=== PATIENT | male | born 1970 | race Caucasian/White ===

== ENCOUNTER 2019-09-13 16:11 | Outpatient (CLI) | payer BC, SELFPAY ==
[2019-09-13 16:22] LABS: Basophils Percent Auto 0.3 % (0.2-1.2); Eosinophils Absolute Auto 0.1 K/mm3 (0-0.3); Eosinophils Percent Auto 1.8 % (0-4.4); Hematocrit 47.2 % (42.0-52.0); Hemoglobin 15.9 g/dL (14.0-18.0); Immature Granulocyte Absolute 0.03 K/mm3 (0.00-0.031); Immature Granulocyte Percent A 0.4 % (0-0.5); Lymphocytes Absolute Auto 2.02 K/mm3 (0.9-3.2); Lymphocytes Percent Auto 27.5 % (18.3-44.2); Mean Corpuscular HGB Conc 33.7 g/dl (32-36); Mean Corpuscular Hemoglobin 30.1 pg (26-34); Mean Corpuscular Volume 89.2 fl (80-100); Mean Platelet Volume 9.3 fl (7.4-10.4); Monocytes Absolute Auto 0.7 K/mm3 (0.1-0.6); Monocytes Percent Auto 9.3 % (2.6-8.5); Neutrophils Absolute Auto 4.5 K/mm3 (1.3-6.7); Neutrophils Percent Auto 60.7 % (45.5-73.1); Platelet Count Result 152 k/mm3 (150-375); Red Blood Count 5.29 M/mm3 (4.6-6.20); Red Cell Distribution Width 14.1 % (11.5-14.5); White Blood Count 7.3 K/mm3 (4.5-10.0)
[2019-09-13 16:53] LABS: Iron 112 ug/dL (49-181)
[2019-09-13 17:05] LABS: Percent Iron Saturation 37 % (20-50)
== END 2019-09-13 16:12 | disposition home or self-care (01) ==
LOC: ANHLAB 16:13
PROVIDERS: PCP Physician Assistant; Visit Provider Internal Medicine Hematology & Oncology
DX: E83.110 Hereditary hemochromatosis (principal)
CPT/HCPCS: 36415; 82728; 83540; 83550; 85025

== ENCOUNTER 2019-12-01 09:37 | Outpatient (CLI) | payer BC, SELFPAY ==
[2019-12-01 10:03] LABS: Basophils Percent Auto 0.2 % (0.2-1.2); Eosinophils Absolute Auto 0.2 K/mm3 (0-0.3); Eosinophils Percent Auto 1.9 % (0-4.4); Hematocrit 51.7 % (42.0-52.0); Hemoglobin 17.5 g/dL (14.0-18.0); Immature Granulocyte Absolute 0.05 K/mm3 (0.00-0.031); Immature Granulocyte Percent A 0.6 % (0-0.5); Lymphocytes Absolute Auto 2.05 K/mm3 (0.9-3.2); Lymphocytes Percent Auto 24.3 % (18.3-44.2); Mean Corpuscular HGB Conc 33.8 g/dl (32-36); Mean Corpuscular Hemoglobin 29.8 pg (26-34); Mean Corpuscular Volume 87.9 fl (80-100); Monocytes Absolute Auto 0.6 K/mm3 (0.1-0.6); Monocytes Percent Auto 7.3 % (2.6-8.5); Neutrophils Absolute Auto 5.5 K/mm3 (1.3-6.7); Neutrophils Percent Auto 65.7 % (45.5-73.1); Platelet Count Result 156 k/mm3 (150-375); Red Blood Count 5.88 M/mm3 (4.6-6.20); Red Cell Distribution Width 11.6 % (11.5-14.5); White Blood Count 8.4 K/mm3 (4.5-10.0)
[2019-12-01 11:27] LABS: Iron 130 ug/dL (49-181)
[2019-12-01 11:36] LABS: Percent Iron Saturation 41 % (20-50)
== END 2019-12-01 09:38 | disposition home or self-care (01) ==
LOC: ANHLAB 09:39
PROVIDERS: PCP Physician Assistant; Visit Provider Internal Medicine Hematology & Oncology
DX: E83.110 Hereditary hemochromatosis (principal)
CPT/HCPCS: 36415; 82728; 83540; 83550; 85025

== ENCOUNTER 2020-12-29 10:17 | Outpatient (CLI) | payer BC, SELFPAY ==
[2020-12-29 15:00] LABS: Alanine Aminotransferase 26 U/L (4-50); Albumin Level 4.6 g/dL (3.5-5.1); Alkaline Phosphatase 78 U/L (38-126); Anion Gap 11 mmol/L (8-16); Aspartate Amino Transferase 28 U/L (17-59); Bilirubin,Total 0.5 mg/dL (0.2-1.3); Blood Urea Nitrogen 19 mg/dL (9-20); Calcium 9.7 mg/dL (8.4-10.2); Carbon Dioxide 24 mmol/L (22-30); Chloride 106 mmol/L (98-107); Cholesterol 257 mg/dL (0-200); Estimated Glomerular Filt Rate > 60; Glucose 99 mg/dL (75-110); HDL Direct 57 mg/dL; Potassium 4.3 mmol/L (3.4-5.0); Sodium 141 mmol/L (137-145); Triglycerides 153 mg/dL (<150)
[2020-12-29 15:10] LABS: LDL Cholesterol Direct 134 mg/dL
[2020-12-29 15:13] LABS: Add Urine Microscopic? YES; Appearance Urine Clear (Clear); Bilirubin Urine Negative (Negative); Blood Urine Negative (Negative); Color Urine Yellow (Yellow); Glucose Urine UA Negative (Negative); Ketones Urine Negative (Negative); Leukocyte Esterase Ur Negative LEU/UL (NEGATIVE); Mucus Urine Rare /lpf; Nitrate Urine Negative (Negative); Protein Urine 1+ mg/dL (Negative); Specific Grav Ur 1.025 (1.001-1.035); Urobilinogen Urine Negative mg/dL (<2.0); WBC Urine 0-3 /hpf (0-3)
[2020-12-29 15:18] LABS: Free T4 Free Thyroxine 0.95 ng/mL (0.78-2.19)
[2020-12-29 15:31] LABS: Prostate Specific Antigen 1.1 ng/mL (< OR = 4.0)
[2020-12-29 15:33] LABS: Hemoglobin A1C 5.3 % (<5.7)
[2020-12-29 16:06] LABS: Folic Acid 6.3 ng/mL (2.76->20)
== END 2020-12-29 10:18 | disposition home or self-care (01) ==
LOC: ANHLAB 10:34
PROVIDERS: PCP Physician Assistant; Visit Provider Internal Medicine Hematology & Oncology
DX: E78.2 Mixed hyperlipidemia (principal); E03.9 Hypothyroidism, unspecified; Z79.899 Other long term (current) drug therapy; Z12.5 Encounter for screening for malignant neoplasm of prostate; Z13.1 Encounter for screening for diabetes mellitus
CPT/HCPCS: 36415; 80053; 80061; 81001; 82607; 82746; 83036; 84153; 84439; 84443

== ENCOUNTER → 2021-04-09 14:12 | Outpatient (CLI) | payer BC, SELFPAY ==
--- NOTE | ~2021-04-09 | MR_ITS ---
EXAMINATION: MR brain IAC wo/w con DATE: 04/09/2021 15:19 INDICATION: Dizziness and giddiness. TECHNIQUE: Magnetic resonance imaging (MRI) of the brain, brainstem, and internal auditory canals was performed without and with 20 mL MultiHance intravenous contrast. Sequences included sagittal and ax ial T1-weighted FSE, axial diffusion-weighted FS EPI, axial T2*-weighted GRE, axial T2-weighted FLAIR Propeller, axial T2-weighted Propeller, small xlzuo-oc-twkp coronal FIESTA, small wzyzv-yx-ykab garcia nal T1-weighted FSE, and small btpgy-nq-isvo axial T1-weighted SPGR. Postcontrast sequences included axial T1-weighted FSE, small mxrhd-ea-slne coronal T1-weighted FSE, and small crexv-vu-uksu axial T1- weighted SPGR. Apparent diffusion coefficient (ADC) maps were created. COMPARISON: Brain MRI 05/22/2012, head CT 05/21/2012 FINDINGS: There are scattered areas of nonspecific increased T2-weighted signal intensity in the cere bral white matter, which is within normal limits for the patient's age. There is no intracranial hemo rrhage, acute infarction, or abnormal intracranial mass lesion. The ventricles are normal in size. Th ere are mucous retention cysts in right maxillary sinus. The orbits are normal. The internal auditory canals and inner and middle ears are normal. The mastoid air cells are normal. IMPRESSION: 1. Normal aging brain. Reviewed, dictated and finalized at location A. IMPRESSION: 1. Normal aging brain.
[2021-04-09 14:39] LABS: Estimated Glomerular Filt Rate > 60
== END ==
PROVIDERS: PCP Physician Assistant; Visit Provider Physician Assistant
DX: R42 Dizziness and giddiness (principal)
CPT/HCPCS: 70553; A9577

== ENCOUNTER 2021-04-17 08:07 | Outpatient (CLI) | payer BC, SELFPAY ==
[2021-04-17 08:39] LABS: Basophils Percent Auto 0.3 % (0.2-1.2); Eosinophils Absolute Auto 0.1 K/mm3 (0-0.3); Eosinophils Percent Auto 2.1 % (0-4.4); Hematocrit 43.4 % (42.0-52.0); Hemoglobin 14.8 g/dL (14.0-18.0); Immature Granulocyte Absolute 0.02 K/mm3 (0.00-0.031); Immature Granulocyte Percent A 0.3 % (0-0.5); Lymphocytes Absolute Auto 1.92 K/mm3 (0.9-3.2); Lymphocytes Percent Auto 30.5 % (18.3-44.2); Mean Corpuscular HGB Conc 34.1 g/dl (32-36); Mean Corpuscular Hemoglobin 29.2 pg (26-34); Mean Corpuscular Volume 85.8 fl (80-100); Mean Platelet Volume 8.8 fl (7.4-10.4); Monocytes Absolute Auto 0.5 K/mm3 (0.1-0.6); Monocytes Percent Auto 8.3 % (2.6-8.5); Neutrophils Absolute Auto 3.7 K/mm3 (1.3-6.7); Neutrophils Percent Auto 58.5 % (45.5-73.1); Platelet Count Result 189 k/mm3 (150-375); Red Blood Count 5.06 M/mm3 (4.6-6.20); White Blood Count 6.3 K/mm3 (4.5-10.0)
[2021-04-17 09:58] LABS: Alanine Aminotransferase 42 U/L (4-50); Albumin Level 4.6 g/dL (3.5-5.1); Alkaline Phosphatase 93 U/L (38-126); Anion Gap 9 mmol/L (8-16); Aspartate Amino Transferase 34 U/L (17-59); Bilirubin,Total 0.5 mg/dL (0.2-1.3); Blood Urea Nitrogen 20 mg/dL (9-20); Calcium 9.5 mg/dL (8.4-10.2); Carbon Dioxide 24 mmol/L (22-30); Chloride 106 mmol/L (98-107); Estimated Glomerular Filt Rate > 60; Glucose 121 mg/dL (65-110); Potassium 4.4 mmol/L (3.4-5.0); Sodium 139 mmol/L (137-145)
[2021-04-17 11:05] LABS: Folic Acid 11.1 ng/mL (2.76->20); Iron 116 ug/dL (49-181)
[2021-04-17 11:17] LABS: Percent Iron Saturation 40 % (20-50)
[2021-04-17 11:23] LABS: Free T4 Free Thyroxine 1.04 ng/mL (0.78-2.19)
[2021-04-20 10:21] LABS: Sex Hormone Binding Globulin 16 nmol/L (10-50); Thyroid Peroxidase Antibodies 2 IU/mL (<9)
[2021-04-21 07:47] LABS: FSH 3.6 mIU/mL (1.6-8.0); LH 2.2 mIU/mL (1.5-9.3); Prolactin 2.8 ng/mL (***)
[2021-04-22 13:16] LABS: Testosterone Free 44.3 pg/mL (35.0-155.0); Testosterone Total 211 ng/dL (250-1100)
== END 2021-04-17 08:08 | disposition home or self-care (01) ==
LOC: ANHLAB 08:10
PROVIDERS: PCP Physician Assistant; Visit Provider Internal Medicine Endocrinology, Diabetes & Metabolism
DX: R79.89 Other specified abnormal findings of blood chemistry (principal); R53.83 Other fatigue
CPT/HCPCS: 36415; 80053; 82607; 82728; 82746; 83001; 83002; 83540; 83550; 84146; 84270; 84402; 84403; 84439; 84443; 85025; 86376

== ENCOUNTER 2021-07-10 08:20 | Outpatient (CLI) | payer BC, SELFPAY ==
[2021-07-10 08:50] LABS: Basophils Percent Auto 0.5 % (0.2-1.2); Eosinophils Absolute Auto 0.2 K/mm3 (0-0.3); Eosinophils Percent Auto 2.7 % (0-4.4); Hemoglobin 15.7 g/dL (14.0-18.0); Immature Granulocyte Absolute 0.04 K/mm3 (0.00-0.031); Immature Granulocyte Percent A 0.6 % (0-0.5); Lymphocytes Absolute Auto 2.14 K/mm3 (0.9-3.2); Lymphocytes Percent Auto 32.6 % (18.3-44.2); Mean Corpuscular HGB Conc 33.4 g/dl (32-36); Mean Corpuscular Hemoglobin 29.6 pg (26-34); Mean Corpuscular Volume 88.5 fl (80-100); Mean Platelet Volume 8.9 fl (7.4-10.4); Monocytes Absolute Auto 0.5 K/mm3 (0.1-0.6); Monocytes Percent Auto 7.2 % (2.6-8.5); Neutrophils Absolute Auto 3.7 K/mm3 (1.3-6.7); Neutrophils Percent Auto 56.4 % (45.5-73.1); Platelet Count Result 192 k/mm3 (150-375); Red Blood Count 5.31 M/mm3 (4.6-6.20); Red Cell Distribution Width 11.6 % (11.5-14.5); White Blood Count 6.6 K/mm3 (4.5-10.0)
[2021-07-10 11:08] LABS: Alanine Aminotransferase 34 U/L (4-50); Albumin Level 4.3 g/dL (3.5-5.1); Alkaline Phosphatase 82 U/L (38-126); Anion Gap 8 mmol/L (8-16); Aspartate Amino Transferase 30 U/L (17-59); Bilirubin,Total 0.5 mg/dL (0.2-1.3); Blood Urea Nitrogen 18 mg/dL (9-20); Calcium 9.3 mg/dL (8.4-10.2); Carbon Dioxide 24 mmol/L (22-30); Chloride 102 mmol/L (98-107); Estimated Glomerular Filt Rate > 60; Glucose 152 mg/dL (65-110); Potassium 4.2 mmol/L (3.4-5.0); Sodium 134 mmol/L (137-145); Uric Acid 4.7 mg/dL (3.5-8.5)
[2021-07-10 11:24] LABS: Free T4 Free Thyroxine 0.97 ng/mL (0.78-2.19)
[2021-07-10 11:31] LABS: Hemoglobin A1C 5.6 % (<5.7)
[2021-07-13 05:14] LABS: Insulin Level Total 56.9 uIU/mL (<=19.6)
[2021-07-16 12:55] LABS: Testosterone Total 182 ng/dL (250-1100)
== END 2021-07-10 08:21 | disposition home or self-care (01) ==
LOC: ANHLAB 08:22
PROVIDERS: Internal Medicine Endocrinology, Diabetes & Metabolism; PCP Physician Assistant; Visit Provider Internal Medicine Hematology & Oncology
DX: R73.01 Impaired fasting glucose (principal); E29.1 Testicular hypofunction
CPT/HCPCS: 36415; 80053; 83036; 83525; 84402; 84403; 84439; 84443; 84550; 85025

== ENCOUNTER 2021-12-12 08:48 | Outpatient (CLI) | payer BC, SELFPAY ==
[2021-12-12 09:21] LABS: Basophils Percent Auto 0.3 % (0.2-1.2); Eosinophils Absolute Auto 0.1 K/mm3 (0-0.3); Eosinophils Percent Auto 2.1 % (0-4.4); Hematocrit 51.3 % (42.0-52.0); Hemoglobin 17.3 g/dL (14.0-18.0); Immature Granulocyte Absolute 0.02 K/mm3 (0.00-0.031); Immature Granulocyte Percent A 0.3 % (0-0.5); Lymphocytes Absolute Auto 2.13 K/mm3 (0.9-3.2); Lymphocytes Percent Auto 34.2 % (18.3-44.2); Mean Corpuscular HGB Conc 33.7 g/dl (32-36); Mean Corpuscular Hemoglobin 28.9 pg (26-34); Mean Corpuscular Volume 85.8 fl (80-100); Monocytes Absolute Auto 0.6 K/mm3 (0.1-0.6); Monocytes Percent Auto 8.8 % (2.6-8.5); Neutrophils Absolute Auto 3.4 K/mm3 (1.3-6.7); Neutrophils Percent Auto 54.3 % (45.5-73.1); Platelet Count Result 183 k/mm3 (150-375); Red Blood Count 5.98 M/mm3 (4.6-6.20); Red Cell Distribution Width 11.8 % (11.5-14.5); White Blood Count 6.2 K/mm3 (4.5-10.0)
[2021-12-12 10:01] LABS: Alanine Aminotransferase 26 U/L (6-50); Albumin Level 4.6 g/dL (3.5-5.1); Alkaline Phosphatase 78 U/L (38-126); Anion Gap 7 mmol/L (8-16); Aspartate Amino Transferase 51 U/L (17-59); Bilirubin,Total 0.6 mg/dL (0.2-1.3); Blood Urea Nitrogen 17 mg/dL (9-20); Calcium 8.9 mg/dL (8.4-10.2); Carbon Dioxide 26 mmol/L (22-30); Chloride 102 mmol/L (98-107); Estimated Glomerular Filt Rate > 60; Glucose 111 mg/dL (65-110); Potassium 4.3 mmol/L (3.4-5.0); Sodium 135 mmol/L (137-145)
[2021-12-12 10:02] LABS: Cholesterol 191 mg/dL (0-200); HDL Direct 35 mg/dL; Triglycerides 184 mg/dL (<150)
[2021-12-12 10:12] LABS: LDL Cholesterol Direct 97 mg/dL
[2021-12-12 10:28] LABS: Iron 146 ug/dL (49-181)
[2021-12-12 10:38] LABS: Percent Iron Saturation 42 % (20-50)
[2021-12-12 11:07] LABS: Folic Acid 11.4 ng/mL (2.76->20)
== END 2021-12-12 08:49 | disposition home or self-care (01) ==
LOC: ANHLAB 08:50
PROVIDERS: PCP Physician Assistant; Visit Provider Internal Medicine Hematology & Oncology
DX: E78.2 Mixed hyperlipidemia (principal); Z79.899 Other long term (current) drug therapy
CPT/HCPCS: 36415; 80053; 80061; 82607; 82728; 82746; 83540; 83550; 85025

== ENCOUNTER 2022-03-05 08:09 | Outpatient (CLI) | payer BC, SELFPAY ==
[2022-03-05 08:43] LABS: Basophils Percent Auto 0.2 % (0.2-1.2); Eosinophils Absolute Auto 0.1 K/mm3 (0-0.3); Eosinophils Percent Auto 1.5 % (0-4.4); Hematocrit 43.9 % (42.0-52.0); Hemoglobin 14.4 g/dL (14.0-18.0); Immature Granulocyte Absolute 0.04 K/mm3 (0.00-0.031); Immature Granulocyte Percent A 0.5 % (0-0.5); Lymphocytes Absolute Auto 3.23 K/mm3 (0.9-3.2); Lymphocytes Percent Auto 37.1 % (18.3-44.2); Mean Corpuscular HGB Conc 32.8 g/dl (32-36); Mean Corpuscular Hemoglobin 28.7 pg (26-34); Mean Corpuscular Volume 87.5 fl (80-100); Mean Platelet Volume 9.2 fl (7.4-10.4); Monocytes Absolute Auto 0.6 K/mm3 (0.1-0.6); Monocytes Percent Auto 6.7 % (2.6-8.5); Neutrophils Absolute Auto 4.7 K/mm3 (1.3-6.7); Platelet Count Result 155 k/mm3 (150-375); Red Blood Count 5.02 M/mm3 (4.6-6.20); Red Cell Distribution Width 12.3 % (11.5-14.5); White Blood Count 8.7 K/mm3 (4.5-10.0)
[2022-03-05 11:33] LABS: Cholesterol 160 mg/dL (0-200); HDL Direct 51 mg/dL; Triglycerides 152 mg/dL (<150)
[2022-03-05 11:37] LABS: Hemoglobin A1C 6.1 % (<5.7)
[2022-03-05 11:41] LABS: Alanine Aminotransferase 27 U/L (6-50); Albumin Level 4.2 g/dL (3.5-5.1); Alkaline Phosphatase 78 U/L (38-126); Anion Gap 9 mmol/L (8-16); Aspartate Amino Transferase 21 U/L (17-59); Blood Urea Nitrogen 20 mg/dL (9-20); Calcium 9.2 mg/dL (8.4-10.2); Carbon Dioxide 26 mmol/L (22-30); Chloride 102 mmol/L (98-107); Estimated Glomerular Filt Rate > 60; Glucose 106 mg/dL (65-110); Potassium 3.7 mmol/L (3.4-5.0); Sodium 137 mmol/L (137-145)
[2022-03-05 11:43] LABS: LDL Cholesterol Direct 71 mg/dL
[2022-03-05 11:44] LABS: Free T4 Free Thyroxine 1.13 ng/mL (0.78-2.19)
[2022-03-05 11:59] LABS: Prostate Specific Antigen 1.2 ng/mL (< OR = 4.0)
[2022-03-05 12:34] LABS: Folic Acid 7.4 ng/mL (2.76->20)
[2022-03-08 13:28] LABS: Insulin Level Total 5.9 uIU/mL (<=19.6)
[2022-03-11 16:16] LABS: Testosterone Free 40.8 pg/mL (35.0-155.0); Testosterone Total 204 ng/dL (250-1100)
== END 2022-03-05 08:10 | disposition home or self-care (01) ==
LOC: ANHLAB 08:10
PROVIDERS: PCP Physician Assistant; Visit Provider Internal Medicine Endocrinology, Diabetes & Metabolism
DX: R73.01 Impaired fasting glucose (principal); E29.1 Testicular hypofunction; E03.9 Hypothyroidism, unspecified; E78.2 Mixed hyperlipidemia; Z79.899 Other long term (current) drug therapy; Z12.5 Encounter for screening for malignant neoplasm of prostate
CPT/HCPCS: 36415; 80053; 80061; 82607; 82746; 83036; 83525; 84153; 84402; 84403; 84439; 84443; 85025; G0103

== ENCOUNTER 2022-08-16 12:30 | Emergency (ER) | payer BC, SELFPAY ==
--- NOTE | ~2022-08-16 | CT_ITS ---
EXAMINATION: CT abdomen pelvis wo con DATE: 08/16/2022 13:53 INDICATION: Flank pain. Hematuria. TECHNIQUE: Computed tomography (CT) of the abdomen and pelvis was performed without intravenous contr ast. Automated exposure control and iterative reconstruction technique were employed. The dose-length product was 1524.16 mGy-cm. COMPARISON: None. FINDINGS: The visualized portions of the lung bases demonstrate mild atelectasis. No pleural effusion . The heart size is normal. No pericardial effusion. The liver, gallbladder, spleen, pancreas, adrena l glands, and right kidney are normal. There is a 9.4 cm mass in left kidney measuring soft tissue at tenuation. There is mild left hydronephrosis. There is hyperdense material in left renal pelvis and p roximal left ureter, likely hematoma. There is no urolithiasis. The prostate is mildly enlarged. Ther e are no dilated loops of bowel. The appendix is normal. There are no pathologically enlarged lymph n odes. There is a left inguinal hernia containing fat. There is no free intraperitoneal fluid. There i s mild thoracolumbar spondylosis. IMPRESSION: 1. 9.4 cm mass in left kidney, likely renal cell carcinoma. Abdomen CT with contrast is recommended. 2. Hematoma in proximal left ureter with mild left hydronephrosis. Reviewed, dictated and finalized at location A. IO OPERATIONS ENGINEER IN CHARGE IMPRESSION: 1. 9.4 cm mass in left kidney, likely renal cell carcinoma. Abdomen CT with con trast is recommended. 2. Hematoma in proximal left ureter with mild left hydronephrosis.
--- NOTE | ~2022-08-16 | CT_ITS ---
EXAMINATION: CT abdomen pelvis w con DATE: 08/16/2022 14:30 INDICATION: Left flank pain. Hematuria. TECHNIQUE: Computed tomography (CT) of the abdomen and pelvis was performed with 100 mL Omnipaque 350 intravenous contrast. Automated exposure control and iterative reconstruction technique were employe d. The dose-length product was 1637.82 mGy-cm. COMPARISON: Noncontrast CT abdomen and pelvis 08/16/2022 FINDINGS: The visualized portions of the lung bases demonstrate mild atelectasis. No pleural effusion . The heart size is normal. No pericardial effusion. The liver, gallbladder, spleen, pancreas, adrena l glands, and right kidney are normal. There is a 9.8 x 6.9 cm enhancing mass in left kidney. No aminata l vein involvement. There is mild left hydronephrosis. There is hematoma in proximal left ureter. The prostate is mildly enlarged. There is a left inguinal hernia containing fat. There are no dilated lo ops of bowel. The appendix is normal. There are no pathologically enlarged lymph nodes. There is no f ree intraperitoneal fluid. There is mild thoracolumbar spondylosis. IMPRESSION: 1. 9.8 cm enhancing mass in left kidney, consistent with renal cell carcinoma. 2. Hematoma in proximal left ureter with mild left hydronephrosis. Reviewed, dictated and finalized at location A. RAM CLERK
[2022-08-16 12:48] VITALS: BP 171/91; PULSE 75; RESP 16; TEMP 36.4; O2SAT 99
[2022-08-16 13:00] LABS: Basophils Percent Auto 0.3 % (0.2-1.2); Eosinophils Absolute Auto 0.1 K/mm3 (0-0.3); Eosinophils Percent Auto 1.4 % (0-4.4); Hematocrit 45.9 % (42.0-52.0); Hemoglobin 15.5 g/dL (14.0-18.0); Immature Granulocyte Absolute 0.02 K/mm3 (0.00-0.031); Immature Granulocyte Percent A 0.3 % (0-0.5); Lymphocytes Absolute Auto 2.21 K/mm3 (0.9-3.2); Lymphocytes Percent Auto 28.1 % (18.3-44.2); Mean Corpuscular HGB Conc 33.8 g/dl (32-36); Mean Corpuscular Hemoglobin 28.9 pg (26-34); Mean Corpuscular Volume 85.6 fl (80-100); Mean Platelet Volume 9.2 fl (7.4-10.4); Monocytes Absolute Auto 0.6 K/mm3 (0.1-0.6); Monocytes Percent Auto 7.6 % (2.6-8.5); Neutrophils Absolute Auto 4.9 K/mm3 (1.3-6.7); Neutrophils Percent Auto 62.3 % (45.5-73.1); Platelet Count Result 180 k/mm3 (150-375); Red Blood Count 5.36 M/mm3 (4.6-6.20); Red Cell Distribution Width 12.8 % (11.5-14.5); White Blood Count 7.9 K/mm3 (4.5-10.0)
[2022-08-16 13:11] LABS: Appearance Urine Cloudy (Clear); Bilirubin Urine 1+ (Negative); Blood Urine 3+ (Negative); Color Urine Amber (Yellow); Glucose Urine UA Negative (Negative); Ketones Urine Negative (Negative); Leukocyte Esterase Ur Negative LEU/UL (Negative); Nitrate Urine Negative (Negative); Protein Urine 3+ mg/dL (Negative); Specific Grav Ur 1.025 (1.001-1.035); Urobilinogen Urine 0.2 mg/dL (<2.0)
[2022-08-16 13:15] LABS: Bacteria Urine Trace /hpf; RBC Urine >75 /hpf (0-2); WBC Urine 31-50 /hpf
[2022-08-16 13:16] LABS: Alanine Aminotransferase 26 U/L (6-50); Albumin Level 4.5 g/dL (3.5-5.1); Alkaline Phosphatase 69 U/L (38-126); Anion Gap 7 mmol/L (8-16); Aspartate Amino Transferase 33 U/L (17-59); Bilirubin,Total 0.8 mg/dL (0.2-1.3); Blood Urea Nitrogen 18 mg/dL (9-20); Calcium 8.8 mg/dL (8.4-10.2); Carbon Dioxide 22 mmol/L (22-30); Chloride 103 mmol/L (98-107); Estimated CRCL calculation 104 ml/min; Estimated Glomerular Filt Rate > 60; Glucose 117 mg/dL (65-110); Potassium 4.3 mmol/L (3.4-5.0); Sodium 132 mmol/L (137-145)
[2022-08-16 13:16] LABS: Add Urine Microscopic? YES
[2022-08-16] MEDS: SODIUM CHLORIDE 0.9% IV 1,000 ML 999 ML IV CONT (13:57)
[2022-08-16] MEDS: ONDANSETRON INJ 4 MG/2 ML VIAL IV PUSH (13:57)
[2022-08-16] MEDS: HYDROmorphone HCL INJ (*CRX) 1 MG/ML SYR IV PUSH ×2 (13:57→14:42)
--- NOTE | 2022-08-16 13:57 | ED.GENADULT ---
HPI - General Adult General Chief complaint: Urogenital-Male Stated complaint: hematura Time Seen by Provider: 08/16/22 12:58 History of Present Illness HPI narrative: 52-year-old male presented to the emergency department for evaluation of left flank pain. Patient has no prior history of kidney stones but states approximately 30 minutes prior to arrival he had onset of left-sided flank pain. Patient reports he was just driving his car when symptoms started. Patient reports the pain radiates around from his left flank to his left lower abdomen into his testicle. Patient denies any falls or injuries. Patient reports that he had been having some radiation of the pain to his left testicle over the last few days. Related Data Home Medications Medication Instructions Recorded Confirmed atorvastatin 40 mg tablet 40 mg PO DAILY 12/10/19 06/03/22 levothyroxine 75 mcg capsule 75 mcg PO DAILY 05/01/20 06/03/22 Allergies Allergy/AdvReac Type Severity Reaction Status Date / Time Penicillins Allergy Unknown RASH Verified 06/03/22 14:58 Review of Systems Review of Systems: CONSTITUTIONAL: Denies fever, chills, or sweats. EYES: Denies visual changes, redness, or discharge. ENT: Denies rhinorrhea, congestion, sore throat, or otalgia. CARDIOVASCULAR: Denies chest pain, palpitations, or edema. RESPIRATORY: Denies cough or dyspnea. GASTROINTESTINAL: See HPI GENITOURINARY: Denies dysuria or hematuria. SKIN: Denies rash or itching. MUSCULOSKELETAL: Denies back pain, joint pain, or myalgia. NEUROLOGIC: Denies headache, numbness, or weakness. Exam Narrative: APPEARANCE: Well appearing, no pain, no distress, well-nourished. HEAD: normocephalic, atraumatic. EYES: PERRLA/EOMI, conjunctivae clear. NOSE: Normal no drainage NECK: Supple. No adenopathy, no masses. RESPIRATORY: Airway patent, respirations nonlabored. Clear to auscultation bilaterally, no rales, rhonchi, wheezing. CARDIOVASCULAR: Regular rate and rhythm without murmurs rubs or gallops. ABDOMINAL: Left flank, left upper quadrant tenderness to palpation. MUSCULOSKELETAL: Moves all extremities. Strength/ROM intact, No edema, No calf tenderness. NEURO: Alert. Cranial nerves II through XII intact. Grossly intact SKIN: Warm, dry. Normal Color Course Course Emergency Course: Patient is afebrile with no leukocytosis. Patient's creatinine is 1.1 which is similar to his baseline. Patient's UA did show hematuria. Initially a CT scan without contrast was ordered to evaluate for ureteral calculi. CT abdomen pelvis without contrast was concerned for renal cell carcinoma and CT abdomen pelvis with contrast was recommended. CT with contrast did confirm concern for renal cell carcinoma. Patient did require a second dose of IV pain meds. Patient was initially concerned about discharge to home with his level of pain. Patient was able to ambulate to the bathroom and did urinate with no worsening of his pain. Patient states that his hematuria has resolved. Case was discussed with urology and they are coming to evaluate the patient. Patient did feel improved with treatment of IV fluids and IV pain medication. Patient was evaluated by urology and patient was comfortable with the plan for discharge home. Patient will be provided medications for pain control and for nausea control. Patient will have outpatient follow-up with [facility]. Vital Signs Vital signs: Vital Signs Temperature 97.6 F 08/16/22 12:48 Pulse Rate 75 08/16/22 12:48 Respiratory Rate 16 08/16/22 12:48 Blood Pressure 171/91 H 08/16/22 12:48 Pulse Oximetry 99 08/16/22 12:48 Temperature 97.6 F 08/16/22 12:48 Pulse Rate 93 08/16/22 15:00 Respiratory Rate 17 08/16/22 15:00 Blood Pressure 191/103 H 08/16/22 15:00 Pulse Oximetry 95 08/16/22 15:00 Medical Decision Making Vital Signs Vital Signs: Vital Signs Temperature 97.6 F 08/16/22 12:48 Pulse Rate 75 08/16/22 12:48 Respiratory
--- NOTE | 2022-08-16 14:38 | PC.NURSE ---
vrbo per erp dr benito guanaudid 1mg x 1 dose.
[2022-08-16 15:00] VITALS: BP 191/103; PULSE 93; RESP 17; O2SAT 95
--- NOTE | 2022-08-16 15:20 | PC.NURSE ---
pt ambulatory to bathroom without difficulty
--- NOTE | 2022-08-16 15:29 | PC.NURSE ---
dr voss to see pt in ed.
--- NOTE | 2022-08-16 16:05 | WPDURCON ---
Assessment and Plan Assessment and plan (1) Renal cell carcinoma of left kidney: Code(s): C64.2 - Malignant neoplasm of left kidney, except renal pelvis Status: Acute Assessment and Plan: I had a long talk with the patient and his , explaining that the findings on CT scan are almost certainly indicative of a left renal cell carcinoma. We had a long talk about the anticipated surgical intervention which, given the size and position of this lesion, will likely require laparoscopic nephrectomy. The pain the patient is experiencing is likely a result of a clot in his left collecting system/ ureter. Ureteral obstruction from blood clots is usually minimal and short lived. I am comfortable with pain management as an outpatient. I have my office working on setting up consultation with one of our oncologic urologist to further discuss surgical intervention. My office will contact patient early next week (likely on Friday ) with a follow-up appointment. Urology Consult Note HPI Date Seen: 08/16/22 Primary Care Provider: Rohini Talamantes, PA-C Consult Narrative Narrative: Pleasant 52-year-old male, without prior significant urological or medical history, presents to the ER with hematuria and left flank pain. CT imaging of the abdomen and pelvis with without contrast shows a 10 cm midpole, intrinsic enhancing left renal mass consistent with renal cell carcinoma. There was no evidence of retroperitoneal adenopathy. The radiologist does not report thrombus in the left renal vein but it looks a little full by my review. The patient denies constitutional symptoms, specifically denying fevers/chills, night sweats, unexplained weight loss etc. there does appear to be some clot in his collecting system and proximal left ureter Review of Systems Cardiovascular: Cardiovascular: Denies chest pain, Denies lightheadedness, Denies palpitations and Denies dyspnea Respiratory: Respiratory: Denies dyspnea Gastrointestinal: Gastrointestinal: Denies diarrhea, Denies nausea and Denies vomiting Genitourinary: Genitourinary: Reports hematuria, Denies dysuria and Reports flank pain Endocrine: Endocrine: Denies palpitations Meds Home Medications and Allergies Home Medications Medication Instructions Recorded Confirmed Type atorvastatin 40 mg tablet 40 mg PO DAILY 12/10/19 06/03/22 History levothyroxine 75 mcg capsule 75 mcg PO DAILY 05/01/20 06/03/22 History hydrocodone 5 mg-acetaminophen 325 1 tablet PO Q8H PRN pain #20 tabs 08/16/22 Rx mg tablet ondansetron 4 mg disintegrating 4 mg PO Q6H PRN nausea and 08/16/22 Rx tablet vomiting #20 tabs Allergies Allergy/AdvReac Type Severity Reaction Status Date / Time Penicillins Allergy Unknown RASH Verified 06/03/22 14:58 Vital Signs Vital Signs - 24 hr 08/16/22 12:48 08/16/22 15:00 Temperature 97.6 F Pulse Rate 75 93 Respiratory Rate 16 17 Blood Pressure 171/91 H 191/103 H Pulse Oximetry 99 95 Exam Const: General: no acute distress Resp: Effort & Inspection: normal respiratory effort GI: Inspection: non-distended GI Palp: No abdominal tenderness and No Guarding due to palpation present (GI) Auscultation: normal bowel sounds Results Labs 08/16/22 12:53 08/16/22 12:53 Labs: Short CBC 08/16/22 Range/Units 12:53 WBC 7.9 (4.5-10.0) K/mm3 Hgb 15.5 (14.0-18.0) g/dL Hct 45.9 (42.0-52.0) % Plt Count 180 (150-375) k/mm3 BMP 08/16/22 12:53 Sodium 132 L Potassium 4.3 Chloride 103 Carbon Dioxide 22 BUN 18 Creatinine 1.10 Glucose 117 H Calcium 8.8 Liver Function 08/16/22 Range/Units 12:53 Total Bilirubin 0.8 (0.2-1.3) mg/dL AST 33 (17-59) U/L ALT 26 (6-50) U/L Alkaline Phosphatase 69 (38-126) U/L Albumin 4.5 (3.5-5.1) g/dL Urine 08/16/22 Range/Units 13:00 Urine Color Linda (Yellow) Urine Appearance Cloudy H (Clear) Urine pH 6.0 (
[2022-08-16] MEDS: HYDROcodone/acetaminophen (*CRX) 5-325 MG TABLET 2 TAB PO (16:22)
== END 2022-08-16 16:28 | disposition home or self-care (01) ==
PROVIDERS: Emergency Medicine; Emergency Provider Emergency Medicine; PCP Physician Assistant
DX: C64.2 Malignant neoplasm of left kidney, except renal pelvis (principal); R31.9 Hematuria, unspecified
CPT/HCPCS: 36415; 74176; 74177; 74178; 80053; 81001; 85025; 87086; 96361; 96374; 96375; 96376; 99284; A9270; J1170; J2405; J7030; Q9967

== ENCOUNTER 2022-11-08 08:00 | Outpatient (CLI) | payer BC, SELFPAY ==
[2022-11-08 08:22] LABS: Basophils Percent Auto 0.2 % (0.2-1.2); Eosinophils Percent Auto 0.2 % (0-4.4); Hematocrit 43.8 % (42.0-52.0); Hemoglobin 14.4 g/dL (14.0-18.0); Immature Granulocyte Absolute 0.08 K/mm3 (0.00-0.031); Immature Granulocyte Percent A 0.7 % (0-0.5); Lymphocytes Absolute Auto 1.49 K/mm3 (0.9-3.2); Lymphocytes Percent Auto 12.6 % (18.3-44.2); Mean Corpuscular HGB Conc 32.9 g/dl (32-36); Mean Corpuscular Hemoglobin 29.4 pg (26-34); Mean Corpuscular Volume 89.4 fl (80-100); Mean Platelet Volume 9.1 fl (7.4-10.4); Monocytes Absolute Auto 0.8 K/mm3 (0.1-0.6); Monocytes Percent Auto 6.3 % (2.6-8.5); Neutrophils Absolute Auto 9.5 K/mm3 (1.3-6.7); Platelet Count Result 203 k/mm3 (150-375); Red Cell Distribution Width 12.8 % (11.5-14.5); White Blood Count 11.8 K/mm3 (4.5-10.0)
[2022-11-08 09:40] LABS: Alanine Aminotransferase 32 U/L (6-50); Albumin Level 4.3 g/dL (3.5-5.1); Alkaline Phosphatase 76 U/L (38-126); Anion Gap 7 mmol/L (8-16); Aspartate Amino Transferase 23 U/L (17-59); Bilirubin,Total 0.7 mg/dL (0.2-1.3); Blood Urea Nitrogen 14 mg/dL (9-20); Calcium 9.2 mg/dL (8.4-10.2); Carbon Dioxide 27 mmol/L (22-30); Chloride 103 mmol/L (98-107); Estimated Glomerular Filt Rate > 60; Glucose 107 mg/dL (65-110); Potassium 4.3 mmol/L (3.4-5.0); Sodium 137 mmol/L (137-145)
[2022-11-08 09:54] LABS: Free T4 Free Thyroxine 0.92 ng/mL (0.78-2.19)
[2022-11-08 10:32] LABS: Hemoglobin A1C 5.3 % (<5.7)
[2022-11-13 13:16] LABS: Insulin Level Total 7.6 uIU/mL (<=19.6)
[2022-11-13 18:09] LABS: Testosterone Free 120.2 pg/mL (35.0-155.0); Testosterone Total 501 ng/dL (250-1100)
[2022-11-17 04:31] LABS: Triiodothyronine T3 Free 2.8 pg/mL (2.3-4.2)
== END 2022-11-08 08:01 | disposition home or self-care (01) ==
LOC: ANHLAB 08:02
PROVIDERS: PCP Physician Assistant; Visit Provider Internal Medicine Endocrinology, Diabetes & Metabolism
DX: E29.1 Testicular hypofunction (principal); R73.03 Prediabetes; E03.9 Hypothyroidism, unspecified
CPT/HCPCS: 36415; 80053; 83036; 83525; 84402; 84403; 84439; 84443; 84481; 85025

== ENCOUNTER 2022-12-08 08:40 | Emergency (ER) | payer BC, SELFPAY ==
[2022-12-08 08:48] VITALS: BP 143/78; PULSE 81; RESP 20; TEMP 36.4; O2SAT 98
--- NOTE | 2022-12-08 08:57 | ED.URI ---
HPI - URI/Sore Throat General Chief Complaint: Upper Respiratory Infection Stated Complaint: Cough,Congestion,Sore Throat Time Seen by Provider: 12/08/22 08:50 Source: patient and RN notes reviewed Mode of arrival: ambulatory Limitations: no limitations History of Present Illness HPI Narrative: Patient presents today with a 2 week history of nasal congestion, sinus pressure, cough, fatigue. Denies fever shortness breath. He has been taking Mucinex and Formula 44 D without much relief. Reports asthma as a child, but not as an adult. Denies COPD. He is a nonsmoker. Patient had a left nephrectomy in August 2022 due to renal cell carcinoma. Related Data Home Medications Medication Instructions Recorded Confirmed testosterone enanthate 100 mg/0.5 1 mg subcut WEEKLY 12/08/22 12/08/22 mL subcutaneous auto-injector (Xyosted) Allergies Allergy/AdvReac Type Severity Reaction Status Date / Time Penicillins Allergy Unknown RASH Verified 12/08/22 08:50 [facility] Surgical History Surgical History (Updated 12/08/22 @ 08:59 by Nena Norman, [facility], ) H/O left nephrectomy Comments At time of signature, I have reviewed and agree with nursing past medical, surgical, social and family history unless otherwise noted. Please see nursing chart for further information. There is no relevant family history pertinent to the presenting complaint Exam Narrative: GENERAL: Mildly ill-appearing, well-nourished, and in no acute distress. HEAD: Normocephalic, atraumatic. EYES: EOMI. No redness or drainage. Conjunctivae normal. ENT: Mucous membranes pink and moist. Nares congested with rhinorrhea. Bilateral erythematous and swollen nasal turbinates. Bilateral maxillary sinus tenderness. TMs normal bilaterally. Throat normal. Uvula midline. NECK: Normal AROM. Supple. No lymphadenopathy. CHEST: No respiratory distress. Clear to auscultation. HEART: Regular rate and rhythm. No murmur appreciated. Normal peripheral pulses. EXTREMITIES: Normal range of motion. No edema. SKIN: Warm, dry, no rash. Capillary refill normal. Normal skin turgor. NEURO: No focal deficits. Alert and oriented x3. Gait steady. PSYCH: Normal affect. No signs of depression or anxiety. Course Course Level of Care: Express Care Visit Vital Signs Vital signs: Vital Signs Temperature 97.6 F 12/08/22 08:48 Pulse Rate 81 12/08/22 08:48 Respiratory Rate 20 12/08/22 08:48 Blood Pressure 143/78 H 12/08/22 08:48 Pulse Oximetry 98 12/08/22 08:48 Oxygen Delivery Room Air 12/08/22 08:48 Temperature 97.6 F 12/08/22 08:48 Pulse Rate 81 12/08/22 08:48 Respiratory Rate 20 12/08/22 08:48 Blood Pressure 143/78 H 12/08/22 08:48 Pulse Oximetry 98 12/08/22 08:48 Oxygen Delivery Room Air 12/08/22 08:48 Reviewed. Pt has been instructed to follow up with his PCP regarding his elevated blood pressure today. MDM - URI/Sore Throat MDM Narrative Medical decision making narrative: Symptoms consistent with bacterial sinusitis and bronchitis. Will treat with a Medrol Dosepak, doxycycline. Patient requesting cough medicine as well. Will treat with Tessalon Perles. Anticipatory guidance given. Differential Diagnosis Differential diagnosis: Likely upper respiratory infection, sinusitis, viral infection, bronchitis and other (Pneumonia) Critical Care Time Critical Care Time Critical Care Time: No Discharge Plan Discharge Clinical Impression: Bacterial sinusitis, Bronchitis Patient Disposition: Home, Self-Care Condition: Stable Instructions: Antibiotic Form, Sinusitis (ED), Acute Bronchitis (ED) Additional Instructions: Please take the doxycycline and Medrol Dosepak as directed. Use the Tessalon Perles as needed for your cough. Follow-up with your PCP in 3-4 days if symptoms are not improving. Your blood pressure was elevated above 120/80 today at Urgent Care. This puts you above the threshold for follow up.
== END 2022-12-08 09:05 | disposition home or self-care (01) ==
PROVIDERS: Emergency Provider Nurse Practitioner; PCP Physician Assistant
DX: J32.9 Chronic sinusitis, unspecified (principal); J40 Bronchitis, not specified as acute or chronic; Z90.5 Acquired absence of kidney
CPT/HCPCS: 99213; G0463

== ENCOUNTER 2023-01-05 12:21 | Emergency (ER) | payer BC, SELFPAY ==
--- NOTE | ~2023-01-05 | CT_ITS ---
EXAMINATION: CT chest abdomen pelvis w con DATE: 01/05/2023 15:44 CDT INDICATION: Left chest wall and abdomen pain. History of left renal mass. TECHNIQUE: Computed tomography (CT) of the chest, abdomen, and pelvis was performed with 100 cc Omnip aque 350 intravenous contrast. The dose-length product was 2105.71 mGy-cm. Automated exposure control and iterative reconstruction technique were employed. COMPARISON: CT dated 08/16/2022 FINDINGS: CHEST CT: Left pleural thickening. Heart size normal. No thoracic lymphadenopathy. No significant vascular abno rmality. No significant pleural or pericardial effusion. No endobronchial lesions. There is left lowe r lobe atelectasis/scarring. No pneumothorax. There is subtle stranding of the left lateral abdominal wall, likely related to previous surgery, although cellulitis is not excluded.. Clinically correlate . No acute osseous abnormality. ABDOMEN/PELVIS CT: Status post left nephrectomy. The liver, spleen, pancreas, right adrenal gland and right kidney are u nremarkable. Gallbladder is present. Left adrenal gland not visualized, likely surgically absent. Non obstructive bowel gas pattern. No free air or free fluid. No evidence for abscess. No abnormal pelvic masses or fluid collections. IMPRESSION: 1. Mild nonspecific stranding left lateral abdominal wall which may relate to previous left nephrecto my surgery although cellulitis is not excluded. No evidence for abscess. 2: Nonspecific left pleural thickening with left lower lobe atelectasis/scarring. Reviewed, dictated and finalized at location A. IMPRESSION: 1. Mild nonspecific stranding left lateral abdominal wall which may relate to p revious left nephrectomy surgery although cellulitis is not excluded. No eviden ce for abscess. 2: Nonspecific left pleural thickening with left lower lobe atelectasis/scarri ng.
[2023-01-05 12:24] VITALS: BP 168/83; PULSE 79; RESP 20; TEMP 36.4; O2SAT 97
[2023-01-05 12:48] LABS: Basophils Percent Auto 0.2 % (0.2-1.2); Eosinophils Absolute Auto 0.2 K/mm3 (0-0.3); Hemoglobin 15.7 g/dL (14.0-18.0); Immature Granulocyte Absolute 0.07 K/mm3 (0.00-0.031); Immature Granulocyte Percent A 0.8 % (0-0.5); Lymphocytes Absolute Auto 1.97 K/mm3 (0.9-3.2); Lymphocytes Percent Auto 23.2 % (18.3-44.2); Mean Corpuscular HGB Conc 32.7 g/dl (32-36); Mean Corpuscular Hemoglobin 29.3 pg (26-34); Mean Corpuscular Volume 89.7 fl (80-100); Monocytes Absolute Auto 0.6 K/mm3 (0.1-0.6); Monocytes Percent Auto 6.8 % (2.6-8.5); Neutrophils Absolute Auto 5.7 K/mm3 (1.3-6.7); Platelet Count Result 187 k/mm3 (150-375); Red Blood Count 5.35 M/mm3 (4.6-6.20); Red Cell Distribution Width 13.7 % (11.5-14.5); White Blood Count 8.5 K/mm3 (4.5-10.0)
[2023-01-05 12:59] LABS: INR 0.8; Prothrombin Time 11.9 Seconds (11.1-14.7)
[2023-01-05 13:00] LABS: Alanine Aminotransferase 25 U/L (6-50); Albumin Level 4.1 g/dL (3.5-5.1); Alkaline Phosphatase 77 U/L (38-126); Anion Gap 7 mmol/L (8-16); Aspartate Amino Transferase 24 U/L (17-59); Bilirubin,Total 0.6 mg/dL (0.2-1.3); Blood Urea Nitrogen 22 mg/dL (9-20); Carbon Dioxide 27 mmol/L (22-30); Chloride 104 mmol/L (98-107); Estimated CRCL calculation 81 ml/min; Estimated Glomerular Filt Rate 54; Glucose 129 mg/dL (65-110); Potassium 4.1 mmol/L (3.4-5.0); Sodium 138 mmol/L (137-145)
[2023-01-05 13:01] LABS: Partial Thromboplastin Time 29.9 SECONDS (22.3-36.8)
--- NOTE | 2023-01-05 15:22 | ED.GENADULT ---
HPI - General Adult General Chief complaint: Unspecified Stated complaint: L rib pain Time Seen by Provider: 01/05/23 15:06 History of Present Illness HPI narrative: Patient is a 52-year-old male who presents ER with left-sided chest and abdominal wall pain. Reports yesterday he was working in his home and then had a cough and felt a pop. He has had significant pain since then and feels like there is swelling to the left side of his chest wall and abdomen. Patient has history of renal cell carcinoma and underwent left nephrectomy and hurts in the postoperative area. He was referred here by his treating team as they feel he may require CT knee. Patient has no runny nose or sore throat or productive cough. He is not dyspneic but has pain with deep breath and with physical movements. No bruising of the thorax. Related Data Home Medications Medication Instructions Recorded Confirmed testosterone enanthate 100 mg/0.5 1 mg subcut WEEKLY 12/08/22 12/08/22 mL subcutaneous auto-injector (Xyosted) Allergies Allergy/AdvReac Type Severity Reaction Status Date / Time Penicillins Allergy Unknown RASH Verified 01/05/23 15:29 Review of Systems Review of Systems: All systems reviewed & are unremarkable except as noted in HPI and below Constitutional: Constitutional: Denies chills, Denies fatigue and Denies fever(s) Cardiovascular: Cardiovascular: Reports chest pain, Denies lightheadedness, Denies radiating jaw, neck or arm pain and Denies palpitations Respiratory: Respiratory: Reports cough, Reports pain with cough and Denies dyspnea Gastrointestinal: Gastrointestinal: Denies abdominal pain, Denies diarrhea, Denies nausea and Denies vomiting PMFSH Past Medical History Medical History (Updated 01/05/23 @ 16:33 by Christiano Sumner MD) Hemochromatosis Renal cell carcinoma of left kidney Surgical History Surgical History (Updated 12/08/22 @ 08:59 by Nena Norman, [facility], ) H/O left nephrectomy Exam Narrative: GENERAL: Well-appearing, well-nourished, and in no acute distress. HEAD: Normocephalic, atraumatic. ENT: Mucous membranes moist. CHEST: Clear to auscultation. No respiratory distress. HEART: Regular rate and rhythm. Normal peripheral pulses. Palpation left chest wall without bruising or crepitus. ABDOMEN: Soft, nontender, nondistended. Left lateral abdominal wall infra-axillary line with tenderness as well as tenderness left upper quadrant without guarding. EXTREMITIES: Normal range of motion. No edema. SKIN: Warm, dry, no rash. NEURO: Alert and oriented x3. PSYCH: Normal mood and affect. Course Course Emergency Course: Discussed labs and imaging results. Feel patient has a muscle strain/tear that is causing this stranding on CT. Patient will be placed on Tylenol and muscle laxatives. Discussed avoidance of heavy lifting. Recommend a daily Zyrtec to prevent sneezing/coughing. Vital Signs Vital signs: Vital Signs Temperature 97.5 F L 01/05/23 12:24 Pulse Rate 79 01/05/23 12:24 Respiratory Rate 20 01/05/23 12:24 Blood Pressure 168/83 H 01/05/23 12:24 Pulse Oximetry 97 01/05/23 12:24 Oxygen Delivery Room Air 01/05/23 12:24 Temperature 97.5 F L 01/05/23 12:24 Pulse Rate 79 01/05/23 12:24 Respiratory Rate 20 01/05/23 12:24 Blood Pressure 168/83 H 01/05/23 12:24 Pulse Oximetry 97 01/05/23 12:24 Oxygen Delivery Room Air 01/05/23 12:24 Medical Decision Making Vital Signs Vital Signs: Vital Signs Temperature 97.5 F L 01/05/23 12:24 Pulse Rate 79 01/05/23 12:24 Respiratory Rate 20 01/05/23 12:24 Blood Pressure 168/83 H 01/05/23 12:24 Pulse Oximetry 97 01/05/23 12:24 Oxygen Delivery Room Air 01/05/23 12:24 Temperature 97.5 F L 01/05/23 12:24 Pulse Rate 79 01/05/23 12:24 Respiratory Rate 20 01/05/23 12:24 Blood Pressure 168/83 H 01/05/23 12:24 Pulse Oximetry 97 01/05/23 12:24 Oxygen Delivery Room Air
[2023-01-05] MEDS: MORPHINE SULFATE (*CRX) 4 MG/ML INJ IV PUSH (15:54)
== END 2023-01-05 16:50 | disposition home or self-care (01) ==
PROVIDERS: Emergency Provider Emergency Medicine; PCP Physician Assistant
DX: S39.011A Strain of muscle, fascia and tendon of abdomen, initial encounter (principal); C64.2 Malignant neoplasm of left kidney, except renal pelvis; E83.119 Hemochromatosis, unspecified; Z90.5 Acquired absence of kidney; X50.9XXA Other and unspecified overexertion or strenuous movements or postures, initial encounter
CPT/HCPCS: 36415; 71260; 74177; 80053; 85025; 85610; 85730; 96374; 99284; J2270; Q9967

== ENCOUNTER 2024-09-23 08:08 | Outpatient (CLI) | payer BC, SELFPAY ==
[2024-09-23 08:55] LABS: Basophils Percent Auto 0.3 % (0.2-1.2); Eosinophils Percent Auto 0.5 % (0-4.4); Hematocrit 39.3 % (42.0-52.0); Hemoglobin 13.3 g/dL (14.0-18.0); Immature Granulocyte Absolute 0.04 K/mm3 (0.00-0.031); Immature Granulocyte Percent A 0.5 % (0-0.5); Lymphocytes Absolute Auto 1.25 K/mm3 (0.9-3.2); Lymphocytes Percent Auto 16.6 % (18.3-44.2); Mean Corpuscular HGB Conc 33.8 g/dl (32-36); Mean Corpuscular Hemoglobin 29.2 pg (26-34); Mean Corpuscular Volume 86.2 fl (80-100); Monocytes Absolute Auto 0.4 K/mm3 (0.1-0.6); Monocytes Percent Auto 4.8 % (2.6-8.5); Neutrophils Absolute Auto 5.8 K/mm3 (1.3-6.7); Neutrophils Percent Auto 77.3 % (45.5-73.1); Platelet Count Result 203 k/mm3 (150-375); Red Blood Count 4.56 M/mm3 (4.6-6.20); Red Cell Distribution Width 12.2 % (11.5-14.5); White Blood Count 7.5 K/mm3 (4.5-10.0)
[2024-09-23 12:14] LABS: Cholesterol 300 mg/dL (0-200); HDL Direct 47 mg/dL; Magnesium 1.9 mg/dL (1.6-2.3); Triglycerides 254 mg/dL (<150)
[2024-09-23 12:24] LABS: LDL Cholesterol Direct 155 mg/dL
[2024-09-23 12:34] LABS: Iron 105 ug/dL (49-181)
[2024-09-23 12:46] LABS: Percent Iron Saturation 36 % (20-50)
[2024-09-23 13:28] LABS: Folic Acid > 20.0 ng/mL (2.76->20)
[2024-09-23 13:56] LABS: Free T3 3.73 pg/mL (2.71-6.16); Free T4 Free Thyroxine 1.03 ng/dL (0.78-2.19); Vitamin D 25 Hydroxy 34.3 ng/mL
[2024-09-23 14:11] LABS: Hemoglobin A1C 5.7 % (<5.7)
[2024-09-24 14:39] LABS: Insulin Level Total 22.2 uIU/mL
[2024-09-24 15:13] LABS: DHEA-Sulfate 38 mcg/dL (32-279)
[2024-09-25 08:18] LABS: LH 4.3 mIU/mL (1.5-9.3); Prolactin 2.9 ng/mL (2.0-18.0)
[2024-09-26 23:17] LABS: Iodine Serum/Plasma 57 mcg/L (52-109)
[2024-09-27 16:33] LABS: Sex Hormone Binding Globulin 16 nmol/L (10-50)
[2024-09-27 21:08] LABS: Adrenocorticotropic Hormone 6 pg/mL (6-50)
== END 2024-09-23 08:09 | disposition home or self-care (01) ==
LOC: ANHLAB 08:08
PROVIDERS: PCP Physician Assistant; Visit Provider Internal Medicine Endocrinology, Diabetes & Metabolism
DX: E29.9 Testicular dysfunction, unspecified (principal); E66.9 Obesity, unspecified; R73.01 Impaired fasting glucose; Z13.220 Encounter for screening for lipoid disorders
CPT/HCPCS: 36415; 80061; 82024; 82306; 82542; 82607; 82627; 82670; 82728; 82746; 83001; 83002; 83036; 83525; 83540; 83550; 83735; 84146; 84270; 84402; 84403; 84439; 84443; 84481; 85025